=== PATIENT | female | born 1950 | race Caucasian/White ===

== ENCOUNTER → 2024-12-23 | Outpatient (CLI) | payer OTHER, MEDICARE ==
[2024-12-23 08:54] LABS: INR 1.05 (0.85-1.15); PROTHROMBIN TIME 11.1 SEC (9.6-11.6)
--- NOTE | 2024-12-23 10:00 | NUR ---
U/S GD LT BREAST NODULE BX PROCEDURE PERFORMED BY DR Feliz BUTT. PUNCTURE SITE LT BREAST AND PATIENT TOLERATED PROCEDURE WELL. SPECIMEN X 3 COLLECTED AND SENT TO LAB. TISSUE MARKER DEPLOYED. END OF PROCEDURE AT 0940. BIOPSY NEEDLE REMOVED AND DRESSING APPLIED. NO BLEEDING NOTED. DISCHARGE INSTRUCTIONS GIVEN TO PATIENT AND VERBALIZED UNDERSTANDING. DISCHARGED VIA AMBULATORY AAO X3 WITH NO C/O PAIN.
--- NOTE | 2025-01-19 13:21 | HMCIMG ---
Ultrasound-guided breast biopsy HISTORY: Left breast 12:00 position lesion Case done by Dr. Veiira TECHNIQUE: Informed consent was obtained after explaining the procedure and potential complications to the patient. Timeout performed. All elements of maximal sterile barrier technique, including hand hygiene and cutaneous antisepsis were used. The breast was prepped and draped in a sterile fashion. Local anesthesia was applied and under ultrasound guidance a needle introducer was advanced into the lesion. Then, 3 passes were made with a Bard 14-gauge coring needle. This was followed by placement of a metallic marker (clip). Completion images showed no hemorrhage. Sterile dressing applied. Patient tolerated the procedure well and was discharged home in good condition. Complications: None Blood loss: < 5 mL. IMPRESSION: Breast nodule core biopsy and marker placement.
== END | disposition home or self-care (01) ==
LOC: RAH 07:44
PROVIDERS: ATTEND Internal Medicine
DX: D05.12 Intraductal carcinoma in situ of left breast (principal); N64.4 Mastodynia; S43.81XA Sprain of other specified parts of right shoulder girdle, initial encounter; Z85.850 Personal history of malignant neoplasm of thyroid; Z98.42 Cataract extraction status, left eye; Z98.41 Cataract extraction status, right eye; Z90.89 Acquired absence of other organs; X58.XXXA Exposure to other specified factors, initial encounter; Y93.89 Activity, other specified; Y92.89 Other specified places as the place of occurrence of the external cause; Y99.8 Other external cause status; Z79.01 Long term (current) use of anticoagulants; Z79.899 Other long term (current) drug therapy
CPT/HCPCS: 19083; 85610; 85730; 88361; 36415; 88305; 88342; 88341; A4215 ×2

== ENCOUNTER → 2025-04-20 | Outpatient (CLI) | payer OTHER ==
--- NOTE | 2025-04-20 16:00 | HMCSR ---
APPROVED REPORT EXAM: Two-dimensional and M-mode echocardiogram with Doppler and color Doppler. INDICATION ICD: I27.10 2D Dimensions RVDd3.2 cmLVEF(%)51.9 (>50%) IVSd0.9 (0.7-1.1cm)FS(%)25 % LVDd2.9 (3.8-5.6cm)Ao Root(2D)2.6 (2.0-3.7cm) PWd0.8 (0.7-1.1cm)LVOT diam1.9 (1.8-2.4cm) LVDs2.1 (2.5-4.0cm)IVC diam1.1 cm M-Mode Dimensions Ao Root(MM)2.8 (2.0-3.7cm) Aortic Valve AoV Vmax1.2 m/[place] Peak GR5.8 mmHgLVOT Vmax0.8 m/s AoV VTI0.2 mAo Mean GR2.8 mmHgLVOT VTI0.15 m CATRACHITO (VMAX)1.97 cm2AVA (VTI) 1.9 cm2 Mitral Valve MV E Vmax24.7 cm/sDECEL Xucn775 ms MV A Vmax49.8 cm/sP 1/2 T46 ms E/A ratio0.5MVA (PHT)4.7 cm2 TDI E/E' Medial7.1E/E' Lateral2.5 Medial E' Peak V3.47 cm/sLateral E' Peak V9.84 cm/s Pulmonary Valve PV Vmax0.9 m/sPV VTI0.16 mPV Mean GR1.8 mmHg PV Peak GR3.5 mmHg Tricuspid Valve TR Vmax2.8 m/sRAP (EST) 3 hhKmLSRG77.1 mmHg TR Peak GR33.1 mmHg Left Ventricle The left ventricle is normal size. There is normal left ventricular wall thickness. The LVEF is 55-60 %. The left ventricular diastolic function is normal. Right Ventricle The right ventricle is normal size. The right ventricular systolic function is normal. Atria The left atrium size is normal. The right atrium size is normal. Aortic Valve The aortic valve opens well. No aortic regurgitation is present. There is no aortic valvular stenosis . Mitral Valve Mild posterior annular calcification noted. Mitral valve leaflets open well. The mitral valve is mild ly thickened. There is trace of mitral valve regurgitation noted. There is no mitral valve stenosis. Tricuspid Valve The tricuspid valve is normal in structure. There is mild tricuspid valve regurgitation noted. Pulmonic Valve The pulmonary valve is normal in structure. There is no pulmonic valvular regurgitation. Great Vessels The aortic root is normal in size. The IVC is normal in size and collapses >50% with inspiration. Pericardium There is no pericardial effusion. Other Information Quality : Technically difficult study due to body habitus Conclusion The left ventricle is normal size. The LVEF is 55-60%. The left ventricular diastolic function is normal. The right ventricle is normal size. The right ventricular systolic function is normal. The left atrium size is normal. The right atrium size is normal. There is mild tricuspid valve regurgitation noted. There is no pericardial effusion.
== END | disposition home or self-care (01) ==
LOC: RAH 14:47
PROVIDERS: ATTEND Internal Medicine Pulmonary Disease
DX: I08.1 Rheumatic disorders of both mitral and tricuspid valves (principal); I27.21 Secondary pulmonary arterial hypertension
CPT/HCPCS: 93306